=== PATIENT | female | born 1945 | race Caucasian/White ===

== ENCOUNTER → 2016-05-11 | Outpatient (CLI) | payer OTHER, BC ==
--- NOTE | 2016-05-11 16:45 | DX ---
Left foot 4 views History: Evaluate for osteomyelitis. Diabetic neuropathy, ulceration at the plantar aspect of the mid foot. Comparison: None available. Findings: Assessment of the toes is limited by marked flexion. Partial amputation of the first throug h third toes is suspected. Pes planus is noted. Osteopenia is present with no definite erosions ident ified. Mild degenerative change is present at the first metatarsophalangeal joint. There is diffuse s oft tissue swelling. Atherosclerosis is present. Impression: Diffuse soft tissue swelling with no definite evidence of osteomyelitis. If clinical osmani picion warrants, recommend MRI with contrast.
== END ==
LOC: CIMAGING 11:24
PROVIDERS: ATTEND Podiatrist
DX: M79.89 Other specified soft tissue disorders (principal); M85.872 Other specified disorders of bone density and structure, left ankle and foot; M21.42 Flat foot [pes planus] (acquired), left foot; L97.529 Non-pressure chronic ulcer of other part of left foot with unspecified severity; E13.40 Other specified diabetes mellitus with diabetic neuropathy, unspecified
CPT/HCPCS: 73630-PO